=== PATIENT | male | born 1950 | race African-American/Black ===

== ENCOUNTER → 2019-07-09 12:29 | Outpatient (CLI) | payer MEDICARE, BC, SELFPAY ==
--- NOTE | 2019-07-09 | DI.MRI.S_ITS ---
PROCEDURE: MR LUMBAR SPINE WO CON INDICATIONS: Lumbago with sciatica TECHNIQUE: Noncontrast sagittal T1 spin echo and T2 fast echo, sagittal STIR, axial T1 and T2 fast spin echo through the lumbar spine. In cases with scoliosis, additional coronal T2 fast spin echo may be performed. COMPARISON: None. FINDINGS: Image quality: Excellent. Alignment and Curvature: There is minimal retrolisthesis seen at the T12-L1, L1-L2, and L2-L3 levels. Bone Marrow: Marrow is of normal overall signal. No acute vertebral body compression fractures. Spinal Cord: Conus medullaris terminates at the L1 level. Visualized cord demonstrates normal signal and size. Paraspinous Soft Tissues: No paravertebral masses. T12-L1: There is at least moderate loss of disc height and disc signal seen. Bridging endplate osteophytes are seen. Moderate disc bulge is seen, which is eccentric to the right. Moderate facet joint hypertrophy is seen. There is moderate bilateral neural foraminal narrowing seen, right worse than left. Moderate central canal narrowing is seen. L1-L2: The disc height is well-preserved. Loss of disc signal is seen at this level. Moderate generalized disc bulge is seen. [id number] facet hypertrophy is seen. Bridging endplate osteophytes are seen. Moderate bilateral neural foraminal narrowing is seen, left worse than right. Moderate central canal narrowing is seen. L2-L3: Moderate loss of disc height is seen. Loss of disc signal is seen. Reactive marrow endplate changes are seen, which are hyperintense on T1-weighted and T2-weighted imaging and most consistent with fatty metaplasia (Modic type II changes). Moderate to prominent disc bulge is seen. At least moderate facet hypertrophy is seen at this level. There is moderate bilateral neural foraminal narrowing seen, left worse than right. Moderate to severe central canal narrowing is seen, as on series 5 image 18. L3-L4: Moderate loss of disc height is seen. Loss of disc signal is seen. Moderate to prominent disc bulge is seen. Moderate facet joint hypertrophy is seen. There is moderate right-sided and moderate to severe left-sided neural foraminal narrowing seen. There is a degree of compression seen upon the exiting left L3 nerve root. Moderate to severe central canal narrowing is seen, as on series 5 image 23. L4-L5: There is at least moderate loss of disc height and disc signal. Moderate prominent disc bulge is seen. There is a focal disc protrusion seen involving the right foraminal region, as on series 5 image 27. At least moderate facet hypertrophy is seen. Moderate to severe bilateral neural foraminal narrowing is seen. There is a degree of compression seen upon the exiting nerve roots. Moderate central canal narrowing is seen. L5-S1: Mild loss of disc height is seen. Loss of disc signal is seen. Mild to moderate disc bulge is seen. Moderate facet joint hypertrophy is seen. Moderate to severe bilateral neural foraminal narrowing is seen, left worse than right. There is a degree of compression seen upon the exiting nerve roots. Mild central canal narrowing is seen. 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 There is moderate to severe bilateral neural foraminal narrowing seen on both sides at L4-L5 and L5-S1 and on the right at L3-L4. There is associated nerve root compression. Moderate to severe central canal narrowing is seen at L2-L3 and L3-L4. Dictated by: Ki Leyva M.D. on 07/09/2019 at 14:41 Approved by: Ki Leyva M.D. on 07/09/2019 at 14:48
== END ==
PROVIDERS: Visit Provider Family Medicine
DX: M54.42 Lumbago with sciatica, left side (principal); M47.26 Other spondylosis with radiculopathy, lumbar region; M47.27 Other spondylosis with radiculopathy, lumbosacral region; M48.061 Spinal stenosis, lumbar region without neurogenic claudication; M48.07 Spinal stenosis, lumbosacral region
CPT/HCPCS: 72148